=== PATIENT | male | born 1985 | race African-American/Black ===

== ENCOUNTER 2021-05-29 22:53 | Emergency (ER) | payer SELFPAY ==
[~2021-05-29] VITALS: Ht 172.7 cm; Wt 73.0 kg
[2021-05-30 00:58] LABS: BASOPHILS % 0.3 % (0.0-2.0); EOSINOPHILS % 0.6 % (0.0-5.0); HEMATOCRIT. 43.7 % (42.0-52.0); HEMOGLOBIN. 14.3 g/dL (14.0-18.0); LYMPHOCYTES % 14.1 % (20.0-50.0); MEAN CORPUSCULAR VOLUME 97.7 fL (80.0-94.0); PLATELET 293 x1000/uL (130-400); RED BLOOD CELL COUNT 4.48 mill/uL (4.7-6.1); RED CELL DISTRIBUTION WIDTH 15.2 % (11.6-14.6)
[2021-05-30 01:05] LABS: CHLORIDE 110 mEq/L (98-107)
[2021-05-30 01:08] LABS: ETHANOL BLOOD 22 mg/dL
[2021-05-30 05:00] VITALS: BP 112/83
== END 2021-05-30 05:23 | disposition home or self-care (01) ==
LOC: ER 22:53
DX: F10.129 Alcohol abuse with intoxication, unspecified (principal); Y90.1 Blood alcohol level of 20-39 mg/100 ml
CPT/HCPCS: 36415; 80053; 80320; 85025; 99283; G0480